=== PATIENT | male | born 1950 | race Caucasian/White ===

== ENCOUNTER 2022-02-06 13:56 | Inpatient (IN) ==
[2022-02-06] MEDS ORDERED: Prochlorperazine 10 MG/2 ML VIAL IVP STA (14:34)
[2022-02-06] MEDS ORDERED: 0.9 % Sodium Chloride 1,000 ML IVC ONE (14:34)
[2022-02-06] MEDS ORDERED: *HR* HYDROmorphone (PF) 1 MG/ML SYRINGE IVP STA (15:45)
[2022-02-06 17:19] LABS: Basophils # 0.1 K/mcL (0.0-0.2); Basophils % 0.9 %; Eosinophils # 0.3 K/mcL (0.0-0.6); Eosinophils % 3.5 %; Hematocrit 39.1 % (37.5-50.1); Hemoglobin 12.7 g/dL (12.9-16.9); Immature Granulocytes % 0.3 % (0-4); Lymphocytes # 2.1 K/mcL (0.6-4.6); Lymphocytes % 27.6 %; Mean Corpuscular HGB Conc 32.5 g/dL (31.6-35.5); Mean Corpuscular Hemoglobin 32.4 pg (28.0-33.3); Mean Corpuscular Volume 99.7 fL (83.0-100.0); Mean Platelet Volume 9.8 fL (9.4-12.4); Monocytes # 0.8 K/mcL (0.0-1.3); Monocytes % 10.2 %; Neutrophils # 4.3 K/mcL (1.6-8.9); Platelet Count 185 K/mcL (140-400); Red Blood Count 3.92 M/mcL (4.19-5.50); Red Cell Distribution Width 14.2 % (11.5-14.5); Segmented Neutrophils % 57.5 %; White Blood Count 7.4 K/mcL (4.3-11.1)
[2022-02-06 17:37] LABS: Alanine Aminotransferase 16 Units/L (7-52); Albumin 3.6 g/dL (3.5-5.7); Albumin/Globulin Ratio 1.4 (1.1-2.2); Alkaline Phosphatase 86 Units/L (34-104); Aspartate Amino Transferase 18 Units/L (13-39); BUN/Creatinine Ratio 19 (6-26); Bilirubin,Direct 0.1 mg/dL (0.0-0.2); Bilirubin,Indirect 0.7 mg/dL (0.0-1.0); Bilirubin,Total 0.8 mg/dL (0.3-1.0); Blood Urea Nitrogen 24 mg/dL (8-23); Calcium 8.5 mg/dL (8.6-10.3); Carbon Dioxide 27 mEq/L (23-29); Chloride 109 mEq/L (98-107); Globulin 2.6 g/dL (2.4-3.5); Glucose 91 mg/dL (70-105); Osmolality,Calculated 298 (280-300); Potassium 4.4 mEq/L (3.5-5.1); Sodium 142 mEq/L (136-145); Total Protein 6.2 g/dL (6.4-8.9); Troponin I < 0.03 ng/mL (< 0.04); eGFR For African Americans > 60 (> 60); eGFR For Non-African Americans 56 (> 60)
[2022-02-06 17:51] LABS: Thyroid Stimulating Hormone 2.054 mcIU/mL (0.340-5.600)
[2022-02-06] MEDS ORDERED: *HR* Heparin 5,000 UNIT/ML VIAL IVP ONE (19:41)
[2022-02-06] MEDS ORDERED: *HR* Heparin 5,000 UNIT/ML VIAL IVP PRN ×2 (19:41)
[2022-02-06] MEDS ORDERED: *HR* HYDROmorphone (PF) 1 MG/ML SYRINGE IVP ONE ×2 (19:43→20:48)
[2022-02-06] MEDS ORDERED: *HR* Promethazine 25 MG/ML VIAL IM ONE (20:48)
[2022-02-06] MEDS ORDERED: Naloxone 0.4 MG/ML INJ IVP PRN (21:13)
[2022-02-06] MEDS ORDERED: Perflutren Lipid Microsphere 1.3 ML in 0.9 % Sodium Chloride 8.7 ML IVP PRN (21:14)
[2022-02-06] MEDS: Heparin 25,000UNIT/250ML 1/2NS 25,000 UNIT/250 ML IV.SOLN IVC SCH (22:11)
[2022-02-06 23:01] LABS: Heparin anti-factor XA UFH 0.93 IU/mL (0.30-0.70); INR 1.1; Prothrombin Time 12.1 Seconds (9.4-12.1)
[2022-02-07] MEDS: Acetaminophen 325 MG TABLET PO PRN (03:38)
[2022-02-07 04:31] LABS: Hematocrit 38.7 % (37.5-50.1); Hemoglobin 12.8 g/dL (12.9-16.9); Mean Corpuscular HGB Conc 33.1 g/dL (31.6-35.5); Mean Corpuscular Hemoglobin 32.5 pg (28.0-33.3); Mean Corpuscular Volume 98.2 fL (83.0-100.0); Mean Platelet Volume 9.9 fL (9.4-12.4); Platelet Count 189 K/mcL (140-400); Red Blood Count 3.94 M/mcL (4.19-5.50); Red Cell Distribution Width 14.5 % (11.5-14.5); White Blood Count 7.9 K/mcL (4.3-11.1)
[2022-02-07] MEDS ORDERED: *HR* HYDROmorphone (PF) 1 MG/ML SYRINGE IVP ONE ×3 (04:40→16:37)
[2022-02-07] MEDS ORDERED: *HR* Promethazine 25 MG/ML VIAL IM ONE ×3 (04:40→22:15)
[2022-02-07 04:49] LABS: BUN/Creatinine Ratio 20 (6-26); Blood Urea Nitrogen 26 mg/dL (8-23); Calcium 8.7 mg/dL (8.6-10.3); Carbon Dioxide 28 mEq/L (23-29); Chloride 108 mEq/L (98-107); Chol/HDL Ratio 5.3 (0-4.9); Cholesterol 207 mg/dL (< 200); Glucose 102 mg/dL (70-105); HDL Cholesterol 39 mg/dL (40-59); INR 1.1; LDL Cholesterol,Calculated 141 mg/dL (< 100); Osmolality,Calculated 297 (280-300); Potassium 4.6 mEq/L (3.5-5.1); Prothrombin Time 11.9 Seconds (9.4-12.1); Sodium 141 mEq/L (136-145); Triglycerides 136 mg/dL (< 150); eGFR For African Americans > 60 (> 60); eGFR For Non-African Americans 55 (> 60)
[2022-02-07 04:52] LABS: % Iron Saturation 33 % (20-55); Iron 101 mcg/dL (65-175); Transferrin 219 mg/dL (203-362)
[2022-02-07 05:07] LABS: Activated Partial Thrombo Time 220.8 Seconds (26.0-36.0)
[2022-02-07 05:08] LABS: Ferritin 150 ng/mL (20-250)
[2022-02-07 05:17] LABS: Folate 8.8 ng/mL (3.0-16.0)
[2022-02-07] MEDS ORDERED: lisinopriL 20 MG TABLET PO SCH (09:00)
[2022-02-07] MEDS ORDERED: atenoloL 50 MG TABLET PO SCH (09:00)
[2022-02-07] MEDS: Cholecalciferol (D-3) 1,000 UNIT (25MCG) TABLET PO SCH (09:09)
[2022-02-07] MEDS: atenoloL 50 MG TABLET PO SCH (09:09)
[2022-02-07] MEDS: amLODIPine 5 MG TABLET PO SCH (09:09)
[2022-02-07] MEDS: Gabapentin 300 MG CAPSULE PO SCH ×3 (09:09→20:17)
[2022-02-07] MEDS: Aspirin Enteric Coated 81 MG Tablet PO SCH (09:09)
[2022-02-07] MEDS: lisinopriL 20 MG TABLET PO SCH (09:10)
[2022-02-07] MEDS: clonazePAM 1 MG TABLET PO SCH (09:30)
[2022-02-07] MEDS: Cyanocobalamin (B-12) 1,000 MCG TABLET PO SCH (09:30)
[2022-02-07 10:29] LABS: Estimated Average Glucose 140 mg/dl; Hemoglobin A1C 6.5 %
[2022-02-07] MEDS: clonazePAM 0.5 MG TABLET PO SCH (14:38)
[2022-02-07] MEDS ORDERED: *HR* HYDROmorphone 2 MG TABLET PO ONE (22:16)
[2022-02-08] MEDS: clonazePAM 1 MG TABLET PO SCH ×2 (00:11→09:29)
[2022-02-08] MEDS: Heparin 25,000UNIT/250ML 1/2NS 25,000 UNIT/250 ML IV.SOLN IVC SCH ×2 (02:23→16:04)
[2022-02-08 05:36] LABS: Hematocrit 34.1 % (37.5-50.1); Mean Corpuscular HGB Conc 32.3 g/dL (31.6-35.5); Mean Corpuscular Hemoglobin 32.1 pg (28.0-33.3); Mean Corpuscular Volume 99.4 fL (83.0-100.0); Mean Platelet Volume 10.3 fL (9.4-12.4); Platelet Count 168 K/mcL (140-400); Red Blood Count 3.43 M/mcL (4.19-5.50); Red Cell Distribution Width 14.5 % (11.5-14.5); White Blood Count 8.2 K/mcL (4.3-11.1)
[2022-02-08 06:41] LABS: Calcium 8.1 mg/dL (8.6-10.3); Magnesium 1.9 mg/dL (1.6-2.6); Potassium 4.3 mEq/L (3.5-5.1)
[2022-02-08] MEDS: atenoloL 50 MG TABLET PO SCH (08:52)
[2022-02-08] MEDS: Cyanocobalamin (B-12) 1,000 MCG TABLET PO SCH (08:52)
[2022-02-08] MEDS: amLODIPine 5 MG TABLET PO SCH (08:52)
[2022-02-08] MEDS: Aspirin Enteric Coated 81 MG Tablet PO SCH (08:52)
[2022-02-08] MEDS: Gabapentin 300 MG CAPSULE PO SCH ×3 (08:52→20:58)
[2022-02-08] MEDS: lisinopriL 20 MG TABLET PO SCH (08:52)
[2022-02-08] MEDS: Cholecalciferol (D-3) 1,000 UNIT (25MCG) TABLET PO SCH (08:52)
[2022-02-08] MEDS: *HR* Promethazine 25 MG/ML VIAL IM PRN ×3 (08:53→22:08)
[2022-02-08] MEDS ORDERED: *HR* HYDROmorphone (PF) 1 MG/ML SYRINGE IVP ONE (14:01)
[2022-02-08] MEDS: clonazePAM 0.5 MG TABLET PO SCH (14:32)
[2022-02-08 16:16] LABS: INR 1.1
[2022-02-08] MEDS ORDERED: *HR* Warfarin 5 MG TABLET PO ONE (18:00)
[2022-02-08] MEDS ORDERED: Warfarin perPT PO PRN (18:00)
[2022-02-08] MEDS ORDERED: *HR* HYDROcodone/Acet 5/325 mg TABLET PO ONE (20:12)
[2022-02-08 23:35] VITALS: O2SAT 97
[2022-02-09] MEDS: clonazePAM 1 MG TABLET PO SCH ×2 (00:42→09:31)
[2022-02-09] MEDS ORDERED: *HR* HYDROmorphone 2 MG TABLET PO ONE (03:32)
[2022-02-09] MEDS: *HR* Promethazine 25 MG/ML VIAL IM PRN (03:52)
[2022-02-09 04:18] LABS: Prothrombin Time 11.5 Seconds (9.4-12.1)
[2022-02-09 07:35] VITALS: BP 96/59; PULSE 79; TEMP 98
[2022-02-09] MEDS: Acetaminophen 325 MG TABLET PO PRN (09:25)
[2022-02-09] MEDS: Aspirin Enteric Coated 81 MG Tablet PO SCH (09:25)
[2022-02-09] MEDS: Gabapentin 300 MG CAPSULE PO SCH (09:26)
[2022-02-09] MEDS: Cyanocobalamin (B-12) 1,000 MCG TABLET PO SCH (09:26)
[2022-02-09] MEDS: atenoloL 50 MG TABLET PO SCH (09:26)
[2022-02-09] MEDS: Cholecalciferol (D-3) 1,000 UNIT (25MCG) TABLET PO SCH (09:26)
[2022-02-09] MEDS ORDERED: Prochlorperazine 10 MG/2 ML VIAL IVP PRN (09:30)
[2022-02-09] MEDS ORDERED: *HR* Warfarin 5 MG TABLET PO ONE (18:00)
== END 2022-02-09 11:32 | disposition home or self-care (01) | DRG 310 ==
LOC: EMEROOARM 13:56 → 3BNU 13:56 → 3ANU 13:56 → 3BNU 21:44
PROVIDERS: ADMIT Nurse Practitioner; ATTEND Internal Medicine